=== PATIENT | male | born 1950 | race Caucasian/White ===

== ENCOUNTER 2016-07-06 14:43 | Emergency (ER) | payer MEDICARE, OTHER ==
[~2016-07-06] VITALS: Ht 182.9 cm; Wt 109.1 kg
[~2016-07-06 14:43] MED LIST: ASPIRIN 32325 MG/TAB PO; COZAAR100 MG PO; FLOMAX 0.40.4 MG/CAP PO; HCTZ/TRIAMTEREN1 CAP PO; LOPID 600M600 MG/TAB PO; MELOXICAM15 MG PO; METOPROLOL SUCC50 M2 PO; NEXIUM 20MG20 MG PO; NIASPAN750 MG PO; PRILOSEC 20MG20 MG PO; PRILOTC PO; RANITIDINE150 MG PO; SINGULAIR 110 MG/TAB PO; SINGULAIR 4MG CH4 MG PO; TESSALON P100 MG/CAP PO; ULTRAM 50MG TAB50 MG PO; ZOCOR 20MG20 MG PO; ZYRTEC10 MG PO; [UNRECOGNIZED DRUG - OTHER]; [UNRECOGNIZED DRUG - OTHER]
[2016-07-06] MEDS ORDERED: ZANTAC 150MG T150 MG PO (18:21)
[2016-07-06] MEDS ORDERED: MAXZIDE-25MG TA1 TAB PO (18:22)
[2016-07-06] MEDS ORDERED: PROTONIX 40MG T40 MG PO (18:22)
[2016-07-06] MEDS ORDERED: TOPROL XL 50MG50 MG PO (18:22)
[2016-07-06] MEDS ORDERED: ZITHROMAX Z PA250 MG PO (19:21)
[2016-07-06] MEDS ORDERED: ROBITUSSIN A-C S1 M1 PO (19:22)
[2016-07-06 19:36] VITALS: BP 130/82; PULSE 90; TEMP 99
== END 2016-07-06 19:44 | disposition home or self-care (01) ==
LOC: COL.ER 14:43
DX: R05 Cough (principal); I10 Essential (primary) hypertension; K21.9 Gastro-esophageal reflux disease without esophagitis

== ENCOUNTER → 2019-02-17 | Outpatient (CLI) | payer MEDICARE, OTHER ==
[~2019-02-17] MED LIST changes: +MAXZIDE-25MG TA1 TAB PO; +PROTONIX 40MG T40 MG PO; +ROBITUSSIN A-C S1 M1 PO; +TOPROL XL 50MG50 MG PO; +ZANTAC 150MG T150 MG PO; +ZITHROMAX Z PA250 MG PO
== END ==
LOC: COL.RAD 08:57
DX: Z13.6 Encounter for screening for cardiovascular disorders (principal); F17.200 Nicotine dependence, unspecified, uncomplicated

== ENCOUNTER 2020-05-16 14:00 | Outpatient (CLI) | payer MEDICARE, OTHER ==
[~2020-05-16] VITALS: Ht 182.9 cm; Wt 104.0 kg
[2020-05-16 14:49] VITALS: BP 148/75; PULSE 84; TEMP 96.6
[2020-05-16] MEDS ORDERED: ASPIRIN 81M81 MG/TA2 PO (14:51)
[2020-05-16] MEDS ORDERED: CRESTOR20 MG PO (14:53)
[2020-05-16] MEDS ORDERED: COZAAR 25MG25 MG/TAB PO (14:55)
[2020-05-16] MEDS ORDERED: PERCOCET 325 MG1 TAB PO (14:56)
[2020-05-16] MEDS ORDERED: DESYREL 50MG50 MG PO (14:56)
[2020-05-16 15:15] VITALS: BP 126/73; PULSE 83
[2020-05-16 15:30] VITALS: BP 138/69; PULSE 77; TEMP 97.2
[2020-05-16 16:00] VITALS: BP 138/72; PULSE 79
[2020-05-16 16:30] VITALS: BP 131/74; PULSE 78
[2020-05-16 17:00] VITALS: BP 140/75; PULSE 78; TEMP 97.5
== END 2020-05-16 18:00 | disposition home or self-care (01) ==
LOC: EUO 14:00
DX: U07.1 COVID-19 (principal)
CPT/HCPCS: J7050